=== PATIENT | female | born 1990 | race Asian ===

== ENCOUNTER 2024-01-06 18:04 | Emergency (ER) | payer MEDICAID ==
[~2024-01-06] VITALS: Ht 154.9 cm; Wt 58.1 kg
[2024-01-06 18:09] VITALS: BP_SYST 122; PULSE 96; RESP 18; TEMP 98.5; O2SAT 99
[2024-01-06 19:19] LABS: BASOPHILS # (AUTO) 0.1 K/uL (0.0-0.2); BASOPHILS % (AUTO) 0.9 % (0.0-2.0); EOSINOPHILS # (AUTO) 0.2 K/uL (0.0-0.4); HEMATOCRIT 38.4 % (36-48); HEMOGLOBIN 13.1 g/dL (12.0-16.0); LYMPHOCYTES # (AUTO) 1.7 K/uL (1.0-5.5); LYMPHOCYTES % (AUTO) 19.6 % (20.5-51.5); MEAN CORPUSCULAR HEMOGLOBIN 30 pg (27-31); MEAN CORPUSCULAR HGB CONC 34 % (32-36); MEAN CORPUSCULAR VOLUME 89 fL (79.0-98.0); MONOCYTES # (AUTO) 0.6 K/uL (0.0-1.0); MONOCYTES % (AUTO) 6.6 % (1.7-9.3); NEUTROPHILS # (AUTO) 6.1 K/uL (1.8-7.7); NEUTROPHILS % (AUTO) 70.9 % (40.0-70.0); PLATELET COUNT (AUTO) 437 K/uL (130-430); RED BLOOD CELL COUNT(AUTO) 4.33 MIL/uL (4.2-6.2); RED CELL DISTRIBUTION WIDTH 14.2 % (9.0-15.0); WHITE BLOOD COUNT (AUTO) 8.6 K/uL (4.8-10.8)
[2024-01-06 19:26] LABS: ANION GAP 7 (5-15); CALCIUM 9.8 mg/dL (8.4-11.0); CARBON DIOXIDE 28 mmol/L (23-29); CHLORIDE 104 mmol/L (98-107); CREATININE 0.58 mg/dL (0.55-1.30); GFR AFRICAN AMERICAN 152 mL/min (>90); GLUCOSE 90 mg/dL (74-106); POTASSIUM 4.7 mmol/L (3.5-5.1); SODIUM SERUM 139 mmol/L (136-145); UREA NITROGEN, BLOOD 7 mg/dL (8-21)
[2024-01-06 19:43] LABS: GFR NON AFRICAN-AMERICAN 126 mL/min (>90)
[2024-01-06] MEDS ORDERED: LORA-258 PO (22:28)
[2024-01-06] MEDS ORDERED: IBUP-1969 PO (22:28)
[2024-01-06] MEDS ORDERED: ACET-2634 PO (22:28)
[2024-01-06] MEDS: KETOROLAC TROMETHAMINE 30 MG VIAL IM ONE (22:54)
[2024-01-06 23:15] VITALS: BP_SYST 127; PULSE 80; RESP 16; TEMP 98.4; O2SAT 99
== END 2024-01-06 23:16 | disposition home or self-care (01) ==
LOC: SED 18:04
DX: F41.9 Anxiety disorder, unspecified (principal); R07.89 Other chest pain; R20.2 Paresthesia of skin; I10 Essential (primary) hypertension; F17.200 Nicotine dependence, unspecified, uncomplicated; Z79.899 Other long term (current) drug therapy
CPT/HCPCS: 99285; 71046; 80048; 85025; 84484; 36415; 93005; 96372; J1885